=== PATIENT | female | born 1965 | race Caucasian/White ===

== ENCOUNTER 2024-06-04 08:55 | Outpatient (AMB) | payer MEDICAID, SELFPAY ==
[2024-06-04 09:14] VITALS: BP 124/82; PULSE 63; RESP 18; TEMP 36.6; O2SAT 97; BMI 20.1
--- NOTE | 2024-06-04 09:14 | PD.ORTHCLVIS ---
Vital signs 06/04/24 09:14 Height 1.63 m Height Method Stated Weight 53.212 kg Weight Measurement Method Standing Scale BMI 20.1 BP 124/82 Blood Pressure Source Automatic Cuff Blood Pressure Location Left Upper Arm Position Sitting Respiration 18 Pulse 63 Pulse Source Monitor Temp 97.8 F Temp Source Temporal Artery Scan Pulse Oximetry (%) 97 Oxygen Delivery Method Room Air Med/Allergies Allergies & Medications Allergies Sulfa (Sulfonamide Antibiotics) Allergy (Verified 06/04/24 09:15) Hives Medication Reconciliation conjugated estrogens 0.625 mg tablet (Premarin) 0.625 mg PO DAILY ##0 06/14/07 [History Confirmed 06/04/24] medroxyprogesterone 5 mg tablet (Provera) 5 mg PO DAILY ##0 06/14/07 [History Confirmed 06/04/24] pregabalin 150 mg capsule (Lyrica) 150 mg PO TID ##0 06/14/07 [History Confirmed 06/04/24] methylprednisolone 4 mg tablets in a dose pack (Medrol (Jasper)) See Rx Instructions .Route .COMPLEX #21 tabs 07/12/20 [Rx Confirmed 06/04/24] prednisone 10 mg tablet 10 mg PO BID #6 tabs 12/15/20 [Rx Confirmed 06/04/24] Exam Exam Patient is in no acute distress and is cooperative with the examination today. Patient has a normal mood and affect. Breathing is nonlabored. In no respiratory distress. Bilateral extremities were evaluated and demonstrates sensation intact to light touch. Palpable pedal pulses are present. No significant edema is present. Left hip demonstrates internal rotation is 0 degrees. External rotate 15 degrees. Assessment and Plan Problem List (1) Avascular necrosis of bone of left hip: Status: Acute Plan: Patient is a 58-year-old female with left hip pain and likely left hip avascular porosis. We will need x-rays to see what it looks like. She had a right hip That was replaced 3 years ago. She is doing well. 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 ([id number]) Questionairres Past Medical History Past Medical History Have you ever been diagnosed with any of the following: Neurological Problems Cerebrovascular Accident (CVA): No Alzheimer's Disease: No Cardiology Problems Myocardial Infarction: No Angina: No Congestive Heart Failure: No Respiratory Problems Chronic Obstructive Pulmonary Disease (COPD): Yes Asthma: Yes (copd and asthma) Emphysema: Yes Pneumonia: Yes Tuberculosis: No Stomache/Intestinal Problems Liver Cancer: No Pancreatic Cancer: No Pancreatitis: No Genital/Urinary Problems Renal Disease: No Musculoskeletal Problems Muscular Dystrophy: No Bone Cancer: No Head,Eye,Nose,Throat Problems Blind: No Deafness: No Endocrine Problems Diabetes Mellitus Type 1: No Diabetes Mellitus Type 2: No Blood Problems Sickle Cell Disease: No Psychologic Problems Anxiety: Yes Other Problems Down Syndrome: No Developmental Delay: No Subjective Visit Visit for: new patient and hip (LEFT) Immunization / Flu Flu Vaccine in the Last 12 Months: No Flu Vaccine Exclusion Criteria: Refused by Patient History of Present Illness Chief complaint: Left hip pain Angie is a pleasant 58-year-old female with left hip avascular porosis. She has had no x-rays within the last 4 years. She had a right hip replaced. She is on home oxygen occasionally at home and does have a history of COPD. She was previously on steroids and this is likely the reason for avascular porosis. She had her right hip done with Dr. Gruber in 2021 in [place]. She reports the left hip is bothering her quite a bit. There is significant pain in the groin Personal History Red flag PMH: none Pain Pain level (0-10): 7 Pain duration: WITH MOVEMENT Pain quality: sharp and aching Pain timing: night, increases with activity and stairs Associated signs & symptoms: numbness, weakness and stiffness Ambulatory data Ambulatory device: walker Treatments Improvement with previous injections: No Improvement with PT: No Improvement with NSAIDS: n/a Review of Systems Review of Systems: All systems negative unless otherwise noted in HPI.
--- NOTE | 2024-06-04 09:30 | XR_ITS ---
Examination: Bilateral hips, AP pelvis, 5 views Technique: AP, lateral views both hips, AP pelvis, 5 views Exam date and time: June 04, 2024 0942 hrs. Indications: Left hip pain 3 years. Findings: Advanced left hip osteoarthritis Prominent osteopenia Sclerosis and fragmentation left femoral head Total right hip arthroplasties with satisfactory alignment Bones of the pelvis Impression: Advanced left hip osteoarthritis Extensive avascular necrosis left femoral head
== END 2024-06-04 10:12 | disposition home or self-care (01) ==
PROVIDERS: PCP Physician Assistant Medical; Referring Provider Physician Assistant Medical; Supervising Provider Orthopaedic Surgery Adult Reconstructive Orthopaedic Surgery; Visit Provider Orthopaedic Surgery Adult Reconstructive Orthopaedic Surgery
DX: M87.852 Other osteonecrosis, left femur (principal); Z96.641 Presence of right artificial hip joint
CPT/HCPCS: 73522; 99204; G0463

== ENCOUNTER 2024-07-01 10:52 | Outpatient (AMB) | payer MEDICAID, SELFPAY ==
[2024-07-01 10:58] VITALS: BP 159/88; PULSE 68; RESP 18; TEMP 36.3; O2SAT 97; BMI 20.1
--- NOTE | 2024-07-01 10:58 | PD.ORTHCLVIS ---
Vital signs 07/01/24 10:58 Height 1.63 m Height Method Measured Weight 53.552 kg Weight Measurement Method Standing Scale BMI 20.1 BP 159/88 H Blood Pressure Source Automatic Cuff Blood Pressure Location Left Upper Arm Position Sitting Respiration 18 Pulse 68 Pulse Source Monitor Temp 97.3 F Temp Source Temporal Artery Scan Pulse Oximetry (%) 97 Oxygen Delivery Method Room Air Med/Allergies Allergies & Medications Allergies Sulfa (Sulfonamide Antibiotics) Allergy (Verified 07/01/24 10:59) Hives Medication Reconciliation conjugated estrogens 0.625 mg tablet (Premarin) 0.625 mg PO DAILY ##0 06/14/07 [History Confirmed 07/01/24] medroxyprogesterone 5 mg tablet (Provera) 5 mg PO DAILY ##0 06/14/07 [History Confirmed 07/01/24] pregabalin 150 mg capsule (Lyrica) 150 mg PO TID ##0 06/14/07 [History Confirmed 07/01/24] methylprednisolone 4 mg tablets in a dose pack (Medrol (Jasper)) See Rx Instructions .Route .COMPLEX #21 tabs 07/12/20 [Rx Confirmed 07/01/24] prednisone 10 mg tablet 10 mg PO BID #6 tabs 12/15/20 [Rx Confirmed 07/01/24] Exam Exam Patient is in no acute distress and is cooperative with the examination today. Patient has a normal mood and affect. Breathing is nonlabored. In no respiratory distress. Bilateral extremities were evaluated and demonstrates sensation intact to light touch. Palpable pedal pulses are present. No significant edema is present. Left hip demonstrates internal rotation is 0 degrees. External rotate 15 degrees. X-rays demonstrate significant left hip avascular porosis with collapse of the femoral head. The right hip demonstrates a total hip replacement good alignment position Assessment and Plan Problem List (1) Avascular necrosis of bone of left hip: Status: Acute Plan: Patient is a 58-year-old female with left hip pain and Avascular porosis of significant severity. There is complete collapse of the left femoral head. We thus discussed total hip replacement is a reasonable option as she has failed conservative treatment. I would do this from a lateral approach as her last incision was a lateral The nature and purpose of the total hip replacement, alternative method(s) of treatment, the material risks involved, and the possibility of complications were fully explained to the patient. The patient does NOT have any of the following contraindications to IMLTON: - Active infection of the hip joint, OR - Active systemic bacteremia, OR - Active skin infection or open wound at surgical site, OR - Neuropathic arthritis, OR - Severe, rapidly progressive neurological disease, OR - Severe medical condition that makes risks of the surgery outweigh the potential benefit The patient was told the most common risks and complications associated with a total hip replacement include, but are not limited to: blood clots in the leg, fatal pulmonary embolism, dislocation of the prosthesis, intraoperative and postoperative fractures of the femur or acetabulum, infection, failure of the prosthesis or grafting materials, complications from anesthesia, reactions to blood transfusions, postoperative leg length inequality, instability of the hip replacement, nerve damage or injury, vascular injury, delayed wound healing, infection, other injury or even . In addition, there are risks associated with anesthesia given during this operation. Also, the patient was told that after undergoing a total hip replacement there may still be persistent pain or disability. The patient was informed that the success of this operation in part depends upon the mechanical devices which are going to be implanted and that these devices can fail or malfunction, and may need to be repaired or replaced and there are no guarantees as to the longevity of this device or its parts and that it or its parts could fail prematurely. The patient was also notified that during the course of surgery, there may be a need to use bone graft from donors, and that any bone graft used will be carefully screened for communicable diseases, including AIDS, hepatitis, Jordin-Creutzfeldt, or other diseases, but despite the screening procedures, there is a small chance that they could contract one of these diseases. Finally, the patient was asked to follow completely and fully with all advice and recommended treatments, and that recovery and ultimate outcome are affected by their compliance with recommended treatment. We discussed the risks, benefits and treatment alternatives, and the patient is interested in proceeding with surgery. We will try to set this up as expeditiously as possible. Office Procedures GNS Level of Care Nursing/Assessment Patient Status: Established Patient Nursing Assessment/Reassesment: Medication Reconciliation, Update PMH in EMR and Vital Signs Coordination of Care: Complex Care/Chronic Disease 5 or more, Education Complex Pt/Fam, Consent,records obtained, informed consent, Results/Orders obtained and Staff clarify orders Established Patient Charge Established Patient Point Assignment: 105 Established Patient Point Charge: EP Level 3 (80-115) [place] Intake Visit Data Collection New Patient or Established: Established Patient (seen at [facility] within 3 years) Reason for Visit:: LEFT HIP XRAY RESULTS Switch Adjuster Required: No Do You Feel Safe at Home: Yes Questionairres Past Medical History Past Medical History Have you ever been diagnosed with any of the following: Neurological Problems Cerebrovascular Accident (CVA): No Alzheimer's Disease: No Cardiology Problems Myocardial Infarction: No Angina: No Congestive Heart Failure: No Respiratory Problems Chronic Obstructive Pulmonary Disease (COPD): Yes Asthma: Yes (copd and asthma) Emphysema: Yes Pneumonia: Yes Tuberculosis: No Smoking: No Smoking Exposure: Yes Stomache/Intestinal Problems Liver Cancer: No Pancreatic Cancer: No Pancreatitis: No Genital/Urinary Problems Renal Disease: No Musculoskeletal Problems Muscular Dystrophy: No Bone Cancer: No Head,Eye,Nose,Throat Problems Blind: No Deafness: No Endocrine Problems Diabetes Mellitus Type 1: No Diabetes Mellitus Type 2: No Blood Problems Sickle Cell Disease: No Psychologic Problems Anxiety: Yes Other Problems Down Syndrome: No Developmental Delay: No Surgical History Total Hip Replacement: Yes (RIGHT ) Subjective Visit Visit for: follow up visit, hip and x-rays Immunization / Flu Flu Vaccine in the Last 12 Months: No Flu Vaccine Exclusion Criteria: No Exclusion Criteria History of Present Illness Chief complaint: LEFT HIP PAIN; X RAY RESULTS Angie is a pleasant 58-year-old female with left hip avascular porosis. She has had no x-rays within the last 4 years. She had a right hip replaced. She is on home oxygen occasionally at home and does have a history of COPD. She was previously on steroids and this is likely the reason for avascular porosis. She had her right hip done with Dr. Gruber in 2021 in [place]. She reports the left hip is bothering her quite a bit. There is significant pain in the groin Personal History Red flag PMH: none BMI Counceling provided: Yes Pain Pain level (0-10): 7 Pain duration: WITH MOVEMENT Pain quality: aching Pain timing: night, increases with activity and stairs Associated signs & symptoms: none Ambulatory data Ambulatory device: walker Treatments Improvement with previous injections: No Improvement with PT: No Improvement with NSAIDS: n/a Review of Systems Review of Systems: All systems negative unless otherwise noted in HPI.
== END 2024-07-01 11:25 | disposition home or self-care (01) ==
LOC: HODSRG 10:52
PROVIDERS: PCP Physician Assistant Medical; Referring Provider Physician Assistant Medical; Supervising Provider Orthopaedic Surgery Adult Reconstructive Orthopaedic Surgery; Visit Provider Orthopaedic Surgery Adult Reconstructive Orthopaedic Surgery
DX: M87.88 Other osteonecrosis, other site (principal); M25.552 Pain in left hip; J44.89 Other specified chronic obstructive pulmonary disease; Z99.81 Dependence on supplemental oxygen
CPT/HCPCS: 99213; G0463

== ENCOUNTER 2024-10-29 09:49 | Outpatient (AMB) | payer MEDICAID, SELFPAY ==
--- NOTE | 2024-10-29 10:32 | PD.ORTHCLVIS ---
Vital signs 10/29/24 10:34 Height 1.63 m Height Method Stated Weight 55.395 kg Weight Measurement Method Standing Scale BMI 20.8 BP 157/81 H Blood Pressure Source Automatic Cuff Blood Pressure Location Left Upper Arm Position Sitting Respiration 19 Pulse 67 Pulse Source Monitor Temp 97.7 F Temp Source Temporal Artery Scan Pulse Oximetry (%) 96 Oxygen Delivery Method Room Air Med/Allergies Allergies & Medications Allergies Sulfa (Sulfonamide Antibiotics) Allergy (Verified 10/29/24 10:35) Hives Medication Reconciliation conjugated estrogens 0.625 mg tablet (Premarin) 0.625 mg PO DAILY ##0 06/14/07 [History Confirmed 10/29/24] medroxyprogesterone 5 mg tablet (Provera) 5 mg PO DAILY ##0 06/14/07 [History Confirmed 10/29/24] pregabalin 150 mg capsule (Lyrica) 150 mg PO TID ##0 06/14/07 [History Confirmed 10/29/24] methylprednisolone 4 mg tablets in a dose pack (Medrol (Jasper)) See Rx Instructions .Route .COMPLEX #21 tabs 07/12/20 [Rx Confirmed 10/29/24] prednisone 10 mg tablet 10 mg PO BID #6 tabs 12/15/20 [Rx Confirmed 10/29/24] Exam Exam Patient is in no acute distress and is cooperative with the examination today. Patient has a normal mood and affect. Breathing is nonlabored. In no respiratory distress. Bilateral extremities were evaluated and demonstrates sensation intact to light touch. Palpable pedal pulses are present. No significant edema is present. Left hip demonstrates internal rotation is 0 degrees. External rotate 15 degrees. X-rays demonstrate significant left hip avascular necrosis with collapse of the femoral head. The right hip demonstrates a total hip replacement good alignment position Assessment and Plan Problem List (1) Avascular necrosis of bone of left hip: Status: Acute Plan: Patient is a 58-year-old female with left hip pain and Avascular necrosis of significant severity. There is complete collapse of the left femoral head. We thus discussed total hip replacement is a reasonable option as she has failed conservative treatment. I would do this from a lateral approach as her last incision was a lateral The nature and purpose of the total hip replacement, alternative method(s) of treatment, the material risks involved, and the possibility of complications were fully explained to the patient. The patient does NOT have any of the following contraindications to MILTON: - Active infection of the hip joint, OR - Active systemic bacteremia, OR - Active skin infection or open wound at surgical site, OR - Neuropathic arthritis, OR - Severe, rapidly progressive neurological disease, OR - Severe medical condition that makes risks of the surgery outweigh the potential benefit The patient was told the most common risks and complications associated with a total hip replacement include, but are not limited to: blood clots in the leg, fatal pulmonary embolism, dislocation of the prosthesis, intraoperative and postoperative fractures of the femur or acetabulum, infection, failure of the prosthesis or grafting materials, complications from anesthesia, reactions to blood transfusions, postoperative leg length inequality, instability of the hip replacement, nerve damage or injury, vascular injury, delayed wound healing, infection, other injury or even . In addition, there are risks associated with anesthesia given during this operation. Also, the patient was told that after undergoing a total hip replacement there may still be persistent pain or disability. The patient was informed that the success of this operation in part depends upon the mechanical devices which are going to be implanted and that these devices can fail or malfunction, and may need to be repaired or replaced and there are no guarantees as to the longevity of this device or its parts and that it or its parts could fail prematurely. The patient was also notified that during the course of surgery, there may be a need to use bone graft from donors, and that any bone graft used will be carefully screened for communicable diseases, including AIDS, hepatitis, Jordin-Creutzfeldt, or other diseases, but despite the screening procedures, there is a small chance that they could contract one of these diseases. Finally, the patient was asked to follow completely and fully with all advice and recommended treatments, and that recovery and ultimate outcome are affected by their compliance with recommended treatment. We discussed the risks, benefits and treatment alternatives, and the patient is interested in proceeding with surgery. We will try to set this up as expeditiously as possible. We are still awaiting cardiac clearance Office Procedures GNS Level of Care Nursing/Assessment Patient Status: Established Patient Nursing Assessment/Reassesment: Medication Reconciliation, Update PMH in EMR and Vital Signs Coordination of Care: Complex Care and Chronic Disease 1-5, Education Complex Pt/Fam, Consent,records obtained, informed consent, Results/Orders obtained and Staff clarify orders Established Patient Charge Established Patient Point Assignment: 95 Established Patient Point Charge: EP Level 3 (80-115) [place] Intake Visit Data Collection New Patient or Established: Established Patient (seen at [facility] within 3 years) Reason for Visit:: LEFT HIP Nursing Program Coordinator Required: No PCP or OBGYN visit in last 3 months: Yes Hx Now: No Do You Feel Safe at Home: Yes Authorities Contacted: N/A Questionairres Past Medical History Past Medical History Have you ever been diagnosed with any of the following: Neurological Problems Cerebrovascular Accident (CVA): No Alzheimer's Disease: No Cardiology Problems Myocardial Infarction: No Angina: No Congestive Heart Failure: No Respiratory Problems Chronic Obstructive Pulmonary Disease (COPD): Yes Asthma: Yes (copd and asthma) Emphysema: Yes Pneumonia: Yes Tuberculosis: No Smoking: No Smoking Exposure: Yes Stomache/Intestinal Problems Liver Cancer: No Pancreatic Cancer: No Pancreatitis: No Genital/Urinary Problems Renal Disease: No Musculoskeletal Problems Muscular Dystrophy: No Bone Cancer: No Head,Eye,Nose,Throat Problems Blind: No Deafness: No Endocrine Problems Diabetes Mellitus Type 1: No Diabetes Mellitus Type 2: No Blood Problems Sickle Cell Disease: No Psychologic Problems Anxiety: Yes Other Problems Down Syndrome: No Developmental Delay: No Surgical History Total Hip Replacement: Yes (RIGHT ) Subjective Visit Visit for: follow up visit, hip and x-rays Immunization / Flu Flu Vaccine in the Last 12 Months: No Flu Vaccine Exclusion Criteria: No Exclusion Criteria History of Present Illness Chief complaint: LEFT HIP PAIN; X RAY RESULTS Angie is a pleasant 58-year-old female with left hip avascular porosis. She has had no x-rays within the last 4 years. She had a right hip replaced. She is on home oxygen occasionally at home and does have a history of COPD. She was previously on steroids and this is likely the reason for avascular necrosis. She had her right hip done with Dr. Gruber in 2021 in [place]. She reports the left hip is bothering her quite a bit. There is significant pain in the groin Personal History Red flag PMH: none BMI Counceling provided: Yes Pain Pain level (0-10): 7 Pain duration: WITH MOVEMENT Pain quality: aching Pain timing: night, increases with activity and stairs Associated signs & symptoms: none Ambulatory data Ambulatory device: walker Treatments Improvement with previous injections: No Improvement with PT: No Improvement with NSAIDS: n/a Review of Systems Review of Systems: All systems negative unless otherwise noted in HPI.
[2024-10-29 10:34] VITALS: BP 157/81; PULSE 67; RESP 19; TEMP 36.5; O2SAT 96; BMI 20.8
== END 2024-10-29 10:45 | disposition home or self-care (01) ==
LOC: HODSRG 09:49
PROVIDERS: PCP Family Medicine; Referring Provider Family Medicine; Supervising Provider Orthopaedic Surgery Adult Reconstructive Orthopaedic Surgery; Visit Provider Orthopaedic Surgery Adult Reconstructive Orthopaedic Surgery
DX: M87.88 Other osteonecrosis, other site (principal); J44.9 Chronic obstructive pulmonary disease, unspecified
CPT/HCPCS: 99213; G0463